=== PATIENT | male | born 1990 | race Caucasian/White ===

== ENCOUNTER 2024-09-23 15:12 | Outpatient (REF) | payer BC, SELFPAY ==
[2024-09-23 21:34] LABS: HCT 40.3 % (40.0-50.0); HGB 13.5 g/dL (13.5-17.5); MCHC 33.5 % (32.0-36.0); MCV 93 fL (80-95); MPV 11.9 fL (8.0-11.0); Platelet Count 234 10^3/uL (130-400); RBC 4.35 10^6/uL (4.36-5.78); RDW 11.7 % (11.8-14.1); RDW-SD 39.9 fL; WBC 7.37 10^3/uL (4.4-10.8)
[2024-09-23 21:55] LABS: ALT 27 U/L (16-63); AST 20 U/L (15-37); Alkaline Phosphatase 67 U/L (46-116); Anion Gap 9.1 mmol/L (3-11); BUN 9 mg/dL (7-18); Bilirubin, Total 0.53 mg/dL (0.2-1.0); CO2 27.9 mmol/L (21.0-32.0); Chloride 107 mmol/L (98-107); Estimated GFR 100.66 (mL/min/1.73m2); Glucose 93 mg/dL (74-106); Potassium 4.1 mmol/L (3.5-5.1); Sodium 144 mmol/L (136-145); Total Protein 7.3 g/dL (6.4-8.2)
[2024-09-25 10:58] LABS: Lyme Ab w Rflx to Lyme Confirm Negative (Negative)
[2024-09-27 18:35] LABS: Anaplasma phagocytophilum Negative (Negative); B. miyamotoi PCR Negative (Negative); Babesia divergens/MO-1 Negative (Negative); Babesia duncani Negative (Negative); Babesia microti Negative (Negative); Ehrlichia chaffeensis Negative (Negative); Ehrlichia ewingii/canis Negative (Negative); Ehrlichia muris eauclairensis Negative (Negative)
== END 2024-09-23 15:13 | disposition home or self-care (01) ==
LOC: NCHCN 15:12
PROVIDERS: PCP Family Medicine; Visit Provider Family Medicine
DX: R42 Dizziness and giddiness (principal)
CPT/HCPCS: 80053; 85027; 87798; 84443; 86618

== ENCOUNTER 2025-07-14 08:44 | Outpatient (REF) | payer BC, SELFPAY ==
[2025-07-14 15:04] LABS: Calculated LDL 138 mg/dL (<100); Cholesterol 209 mg/dL (<200); HDL Cholesterol 57 mg/dL (>or=40); Triglyceride 71 mg/dL (<150)
== END 2025-07-14 08:45 | disposition home or self-care (01) ==
LOC: NCHCN 08:44
PROVIDERS: PCP Family Medicine; Visit Provider Family Medicine
DX: E78.5 Hyperlipidemia, unspecified (principal)
CPT/HCPCS: 80061